=== PATIENT | male | born 1960 | race Caucasian/White ===

== ENCOUNTER 2017-09-13 04:15 | Emergency (ER) | payer MEDICARE ==
[2017-09-13 05:47] LABS: ADD MAN DIFF? NO
[2017-09-13 05:54] LABS: BASO % 1 % (0-3); EOS # 0.1 x10^3/uL (0.0-0.7); EOS % 2 % (0-3); HEMATOCRIT 44.1 % (39.0-53.0); HEMOGLOBIN 14.9 g/dL (13.0-17.5); LYMPH # 1.4 x10^3/uL (1.0-4.8); LYMPH % 22 % (24-48); MEAN CORPUSCULAR HEMOGLOBIN 29 pg (25-35); MEAN CORPUSCULAR HGB CONC 34 g/dL (31-37); MEAN CORPUSCULAR VOLUME 84 fL (79-100); MONO # 0.9 x10^3/uL (0.0-1.1); MONO % 14 % (0-9); NEUT # 3.9 x10^3uL (1.8-7.7); NEUT % 61 % (31-73); PLATELET COUNT 181 x10^3/uL (140-400); RED BLOOD COUNT 5.23 x10^6/uL (4.30-5.70); RED CELL DISTRIBUTION WIDTH 13.8 % (11.5-14.5); WHITE BLOOD COUNT 6.4 x10^3/uL (4.0-11.0)
[2017-09-13 06:01] LABS: ANION GAP 9 (6-14); BLOOD UREA NITROGEN 30 mg/dL (8-26); BUN/CREATININE RATIO 23 (6-20); CALCIUM 8.8 mg/dL (8.5-10.1); CARBON DIOXIDE 27 mmol/L (21-32); CHLORIDE 101 mmol/L (98-107); CREATININE 1.3 mg/dL (0.7-1.3); GFR 56.7; GLUCOSE 165 mg/dL (70-99); SODIUM 137 mmol/L (136-145)
[2017-09-13 06:07] LABS: ALBUMIN 3.7 g/dL (3.4-5.0); ALK PHOS 106 U/L (46-116); ALT (SGPT) 51 U/L (16-63); AST (SGOT) 25 U/L (15-37); LIPASE 94 U/L (73-393); TOTAL BILIRUBIN 0.3 mg/dL (0.2-1.0); TOTAL PROTEIN 7.3 g/dL (6.4-8.2)
[2017-09-13] MEDS: IV NORMAL SALINE 1000ML BAG 1,000 ML IV ×2 (06:20)
[2017-09-13] MEDS: fentaNYL PF VIAL 100 MCG/2 ML VIAL IV ×2 (06:29)
[2017-09-13] MEDS: ONDANSETRON PF 4 MG/2 ML VIAL. IV ×2 (06:30)
[2017-09-13 06:37] LABS: TROPONINI < 0.017 ng/mL (0.000-0.055)
[2017-09-13 07:29] LABS: BILIRUBIN,URINE NEGATIVE (NEG); CLARITY,URINE CLEAR; COLOR,URINE YELLOW; GLUCOSE,URINE 100 mg/dL (NEG); NITRITE,URINE NEGATIVE (NEG); PH,URINE 5.5; PROTEIN,URINE NEGATIVE (NEG-TRACE); UROBILINOGEN,URINE 0.2 mg/dL (0.2 mg/dL)
[2017-09-13 07:54] LABS: HYALINE CASTS, URINE MODERATE /HPF; RBC,URINE 0 /HPF (0-2); SQUAMOUS EPITHELIAL CELL,UR FEW /LPF; WBC,URINE OCC /HPF (0-4)
[2017-09-13 07:55] LABS: BACTERIA,URINE FEW /HPF (0-FEW)
== END 2017-09-13 08:15 | disposition home or self-care (01) ==
LOC: ER 04:15
DX: R10.11 Right upper quadrant pain (principal); J44.9 Chronic obstructive pulmonary disease, unspecified; I10 Essential (primary) hypertension; F12.10 Cannabis abuse, uncomplicated; F15.10 Other stimulant abuse, uncomplicated; R00.0 Tachycardia, unspecified
CPT/HCPCS: 36415; 76705; 80053; 81001; 83690; 84484; 85025; 93005; 96361; 96374; 96375; 99285-25; J2405; J3010; J7030

== ENCOUNTER 2018-12-09 18:35 | Inpatient (IN) | payer MEDICARE ==
[~2018-12-09] VITALS: Ht 177.8 cm; Wt 73.3 kg
[~2018-12-09 18:35] MED LIST: AZIT250T6 PO; PRED50TA PO
[2018-12-09] MEDS ORDERED: IPRATRPIUM/ALBUTEROL 0.5/2.5MG 3 ML NEBU. NEB ONE ×2 (19:15→20:00)
[2018-12-09] MEDS ORDERED: IV NORMAL SALINE 1000ML BAG 1,000 ML IV ONE (19:15)
[2018-12-09] MEDS ORDERED: DEXAMETHASONE SOD PHOS 20 MG/5 ML VIAL. IV ONE (19:15)
--- NOTE | 2018-12-09 19:16 | PHYS DOC ---
Past Medical History Past Medical History: Asthma, COPD, Hypertension Past Surgical History: Cervical Fusion, Other Additional Past Surgical Histo: back sx Smoking: Cigarettes Additional Information: 1 PPD Alcohol Use: Occasionally Drug Use: Cocaine, Marijuana, Methamphetamine Social History Narrative: LAST USED METH A FEW DAYS AGO Adult General Chief Complaint Chief Complaint: SHORTNESS OF BREATH HPI HPI Patient is a 58 year old male with past medical history of COPD and asthma who presents with shortness of breath. Patient states that one week ago he had increased cough that was not productive of any sputum. Within the past 2 days, his cough increased with increasing shortness of breath and dyspnea. Patient has had multiple bouts of pneumonia in the past and feels that this is similar to those symptoms. Today he has taken 4 doses of his metered-dose inhaler which he believed was albuterol but is actually fluticasone. He has not had any relief of his symptoms. He has multiple sick contacts within his family however he denies any fevers chills or increase in purulent sputum. Patient denies any chest pain, shortness of breath, palpitations, hemoptysis, or increased swelling of her extremities. He does occasionally use cocaine and methamphetamine, the last time he used was 2 days ago. Review of Systems Review of Systems Constitutional: Denies fever or chills [] Eyes: Denies vision changes or diplopia [] HENT: Reports nasal congestion and runny nose. Denies sore throat [] Respiratory: Reports nonproductive cough, dyspnea and shortness of breath [] Cardiovascular: Denies chest pain or palpitations[] GI: Denies abdominal pain, nausea, vomiting, or diarrhea [] : Denies dysuria or hematuria [] Musculoskeletal: Denies calf tenderness or lower extremity swelling[] Integument: Denies rash or skin lesions [] Neurologic: Denies headache, focal weakness or sensory changes [] Complete review of systems found to be within normal limits, except as documented in this note. Current Medications Current Medications Current Medications Medications (Trade) Dose Ordered Sig/Maci Start Time Stop Time Status Last Admin Dose Admin Albuterol/ Ipratropium (Duoneb) 3 ml 1X ONCE 12/09/18 20:00 12/09/18 20:01 DC 12/09/18 20:05 3 ML Dexamethasone Sodium Phosphate (Decadron) 10 mg 1X ONCE 12/09/18 19:15 12/09/18 19:16 DC 12/09/18 20:28 10 MG Sodium Chloride 1,000 ml @ 1,000 mls/hr 1X ONCE 12/09/18 19:15 12/09/18 20:14 DC 12/09/18 20:27 1,000 MLS/HR Allergies Allergies Allergies Coded Allergies Type Severity Reaction Last Updated Verified No Known Drug Allergies 09/19/15 No Physical Exam Physical Exam Constitutional: Well developed, well nourished, in mild respiratory distress but non-toxic appearance. [] HENT: Normocephalic, atraumatic, bilateral external ears normal, oropharynx moist, no oral exudates, nose normal. [] Eyes: EOMI, conjunctiva normal, no discharge. [] Neck: Normal range of motion, no tenderness, supple, no lymphadenopathy. [] Cardiovascular:Heart rate tachycardic with regular rhythm, no murmur [] Lungs & Thorax: Diffuse inspiratory and expiratory wheezing bilaterally[] Abdomen: Protuberant, soft and nontender. [] Skin: Warm, dry, no erythema, no rash. [] Back: Midline surgical scar and cervical and thoracic spine without tenderness. [] Extremities: Radial pulses +2 bilaterally, cap refill less than 2 seconds. [] Neurologic: Alert and oriented, normal motor function, normal sensory function, no focal deficits noted. [] Psychologic: Affect normal, judgement normal, mood normal. [] Current Patient Data Vital Signs Vital Signs Date Time Temp Pulse Resp B/P (MAP) Pulse Ox O2 Delivery O2 Flow Rate FiO2 12/09/18 20:05 96 Room Air 12/09/18 20:00 110 24 178/100 (126) 12/09/18 18:38 99.0 99.0 Lab Values Laboratory Tests Test 12/09/18 19:00 White Blood Count 8.8 x10^3/uL (4.0-11.0) Red Blood Count 5.07 x10^6/uL (4.30-5.70) Hemoglobin 14.0 g/dL (13.0-17.5) Hematocrit 41.9 % (39.0-53.0) Mean Corpuscular Volume 83 fL (79-100) Mean Corpuscular Hemoglobin 28 pg (25-35) Mean Corpuscular Hemoglobin Concent 33 g/dL (31-37) Red Cell Distribution Width 13.9 % (11.5-14.5) Platelet Count 194 x10^3/uL (140-400) Neutrophils (%) (Auto) 68 % (31-73) Lymphocytes (%) (Auto) 21 % (24-48) L Monocytes (%) (Auto) 8 % (0-9) Eosinophils (%) (Auto) 3 % (0-3) Basophils (%) (Auto) 1 % (0-3) Neutrophils # (Auto) 5.9 x10^3uL (1.8-7.7) Lymphocytes # (Auto) 1.8 x10^3/uL (1.0-4.8) Monocytes # (Auto) 0.7 x10^3/uL (0.0-1.1) Eosinophils # (Auto) 0.3 x10^3/uL (0.0-0.7) Basophils # (Auto) 0.1 x10^3/uL (0.0-0.2) Sodium Level 139 mmol/L (136-145) Potassium Level 3.7 mmol/L (3.5-5.1) Chloride Level 104 mmol/L (98-107) Carbon Dioxide Level 26 mmol/L (21-32) Anion Gap 9 (6-14) Blood Urea Nitrogen 21 mg/dL (8-26) Creatinine 1.2 mg/dL (0.7-1.3) Estimated GFR (Cockcroft-Gault) 62.0 BUN/Creatinine Ratio 18 (6-20) Glucose Level 141 mg/dL (70-99) H Lactic Acid Level 1.1 mmol/L (0.4-2.0) Calcium Level 8.5 mg/dL (8.5-10.1) Total Bilirubin 1.1 mg/dL (0.2-1.0) H Aspartate Amino Transferase (AST) 25 U/L (15-37) Alanine Aminotransferase (ALT) 42 U/L (16-63) Alkaline Phosphatase 124 U/L (46-116) H Creatine Kinase 93 U/L (39-308) Creatine Kinase MB (Mass) 1.9 ng/mL (0.0-3.6) Creatine Kinase MB Relative Index 2.0 % (0-4) Troponin I Quantitative 0.039 ng/mL (0.000-0.055) KK-Pax-X-Type Natriuretic Peptide 2255 pg/mL (0-124) H Total Protein 7.2 g/dL (6.4-8.2) Albumin 3.5 g/dL (3.4-5.0) Albumin/Globulin Ratio 0.9 (1.0-1.7) L Laboratory Tests 12/09/18 19:00 Laboratory Tests 12/09/18 19:00 EKG EKG @1859: Sinus tachycardia with rate of 112. Normal axis. No Q waves. T wave inversion in leads I and aVL. No ST segment elevation or depression.[] Radiology/Procedures Radiology/Procedures Chest PA Lateral: Surgical hardware for hardware from previous spinal fusion noted. Airway midline. Cardiac silhouette is not enlarged. No pleural effusion noted. No pneumothorax. No overt evidence of consolidation. Initial interpretation provided by ED physician. [] Course & Med Decision Making Course & Med Decision Making Pertinent Labs and Imaging studies reviewed. (See chart for details) Patient is a 58-year-old male with past medical history notable for COPD and asthma who experienced increasing cough about one week ago. His symptoms acutely worsen 2 days ago with increasing nonproductive cough and shortness of breath. He has been using his inhaler at home thinking that this was albuterol however it was inhaled Corticosteroids. Patient was afebrile and maintaining saturations greater than 95% on room air on arrival however he was tachycardic. Patient given two breathing treatment with mild improvement of his respiratory effort effort. Dexamethasone and IV fluids given in the ED. chest x-ray showed no e vidence of acute cardiopulmonary process. Patient afebrile maintaining saturations on room air. Clinical presentation likely consistent with COPD exacerbation. CBC unremarkable. CMP notable for blood glucose of 141. Lactic acid negative. CK-MB negative. Troponin 0.039. ProBNP 2255. Discussed with jaiden way the benefit of being admitted given the fact that his respiratory effort did not initially improve with first breathing treatment. Patient is agreeable and will be admitted to Dr. Schwab for further evaluation and treatment. Patient requiring admission for further evaluation and treatment. Discussed with Dr. Schwab who is in agreement with admission. Discussed findings and plan with patient, who acknowledge understanding and agreement. [] Dragon Disclaimer Dragon Disclaimer This electronic medical record was generated, in whole or in part, using a voice recognition dictation system. Departure Departure Impression: Primary Impression: COPD exacerbation Disposition: ADMITTED INPATIENT Admitting Physician: Jacob Mcgarry Condition: STABLE Referrals: JACOB MCGARRY MD (PCP) DANIELLE TRONCOSO DO December 09, 2018 19:16
[2018-12-09 19:22] LABS: BASO # 0.1 x10^3/uL (0.0-0.2); BASO % 1 % (0-3); EOS # 0.3 x10^3/uL (0.0-0.7); EOS % 3 % (0-3); HEMATOCRIT 41.9 % (39.0-53.0); LYMPH # 1.8 x10^3/uL (1.0-4.8); LYMPH % 21 % (24-48); MEAN CORPUSCULAR HEMOGLOBIN 28 pg (25-35); MEAN CORPUSCULAR HGB CONC 33 g/dL (31-37); MEAN CORPUSCULAR VOLUME 83 fL (79-100); MONO # 0.7 x10^3/uL (0.0-1.1); MONO % 8 % (0-9); NEUT # 5.9 x10^3uL (1.8-7.7); NEUT % 68 % (31-73); PLATELET COUNT 194 x10^3/uL (140-400); RED BLOOD COUNT 5.07 x10^6/uL (4.30-5.70); RED CELL DISTRIBUTION WIDTH 13.9 % (11.5-14.5); WHITE BLOOD COUNT 8.8 x10^3/uL (4.0-11.0)
[2018-12-09 19:31] LABS: CALCIUM 8.5 mg/dL (8.5-10.1); CREATININE 1.2 mg/dL (0.7-1.3); POTASSIUM 3.7 mmol/L (3.5-5.1)
[2018-12-09 19:37] LABS: ALBUMIN 3.5 g/dL (3.4-5.0); ALBUMIN/GLOBULIN RATIO 0.9 (1.0-1.7); TOTAL BILIRUBIN 1.1 mg/dL (0.2-1.0); TOTAL PROTEIN 7.2 g/dL (6.4-8.2)
[2018-12-09] MEDS ORDERED: ONDANSETRON PF 4 MG/2 ML VIAL. IV PRN (20:30)
[2018-12-09] MEDS ORDERED: ACETAMINOPHEN 325 MG TABLET. PO PRN (20:30)
[2018-12-09 21:15] VITALS: BP 158/81
[2018-12-09 23:00] VITALS: BP 145/87
[2018-12-10] VITALS (7 sets, daily range): BP systolic 141–167; BP diastolic 71–90
[2018-12-10] MEDS ORDERED: LISI10TA2 PO (03:27)
--- NOTE | 2018-12-10 05:36 | RAD ---
PA and lateral chest. HISTORY: Short of breath, COPD, asthma, cough, wheezing PA and lateral views were taken of the chest. Patient had previous spinal fusion. Lungs are free of infiltrates. There is no pleural effusion. Heart is normal in size. IMPRESSION: 1. No acute infiltrates. Electronically signed by: Joseph Espino MD (12/10/2018 5:33 AM) [facility]
[2018-12-10] MEDS: IPRATRPIUM/ALBUTEROL 0.5/2.5MG 3 ML NEBU. NEB SCH ×4 (07:41→19:48)
--- NOTE | 2018-12-10 08:24 | PDOC ---
Provider Note Provider Note [id number] ae of copd acute bronchitis elevated troponine and bnp see orders ?cardiology consult RENETTA CONNELL MD December 10, 2018 08:24
--- NOTE | 2018-12-10 08:37 | CONS ---
DATE OF CONSULTATION: 12/10/2018 I was asked to see this 58-year-old gentleman for acute exacerbation of COPD. HISTORY OF PRESENT ILLNESS: He does have history of [id number] smoking, continues to smoke about 1 pack per day. He does also smoke marijuana and methamphetamine. He has had increased shortness of breath, cough with sputum production and wheezing for the past few days. He denies runny nose or nasal congestion or gastroesophageal reflux symptoms. He denies chest pain. PAST MEDICAL HISTORY: COPD, cervical fusion, hypertension. ALLERGIES: No known drug allergies. MEDICATIONS: Currently he is on DuoNeb. SOCIAL HISTORY: History of [id number] smoking. Continues to smoke about 1 pack per day. He smokes marijuana and amphetamine occasionally. FAMILY HISTORY: There is no history of lung disease. REVIEW OF SYSTEMS: As mentioned as above, other systems otherwise negative. PHYSICAL EXAMINATION: GENERAL: This is a well-developed gentleman. VITAL SIGNS: His O2 saturation is 96% on room air, heart rate 88, blood pressure 147/83, and temperature 98. HEENT: Normocephalic, atraumatic. Pupils are equal, round, reactive to light. Throat is clear. Nose is clear. NECK: There is no JVD, lymphadenopathy or thyromegaly. CARDIOVASCULAR: Regular rate and rhythm. PMI is nondisplaced. CHEST: Inspection is normal. LUNGS: There is end-expiratory wheezing. Percussion is within normal limit. ABDOMEN: Soft. Bowel sounds are good. There is no mass. EXTREMITIES: There is no edema. LYMPHATICS: There is no lymphadenopathy. NEUROLOGIC: Alert and oriented. SKIN: Warm. LABORATORY DATA: I reviewed the following lab data: Chest x-ray does not show infiltrate. WBC is 8.8, hemoglobin 14, and platelets 194. Sodium is 139, potassium 3.7, chloride 104, CO2 of 26, glucose 141, BUN 21, creatinine 1.2, total bilirubin 1.1, AST 25, ALT 42, and alkaline phosphatase 124. BNP is 2255. Troponin is 0.025. IMPRESSION: 1. Dyspnea secondary to acute exacerbation of chronic obstructive pulmonary disease and acute bronchitis versus others 2. Acute exacerbation of chronic obstructive pulmonary disease. 3. Acute bronchitis. 4. Elevated troponin and BNP. 5. Tobacco habituation. 6. Drug abuse. 7. Hypertension. PLAN AND RECOMMENDATIONS: 1. Titrate FiO2 to keep O2 saturation 92%. 2. Continue bronchodilator. 3. I will add Solu-Medrol 40 mg IV every 12 hours. 4. Start Rocephin. 5. I will order echocardiogram. He may need Cardiology consultation for elevated troponin and BNP. 6. I had a long discussion with him regarding smoking cessation. I have advised him to stop smoking cigarettes and avoid using marijuana or methamphetamine. 7. The findings and recommendations were discussed with the patient. He understood and agreed to proceed with the plan. Thank you very much for allowing me to participate in care of this very nice gentleman. RENETTA CONNELL M.D. DR: Leela JOB#: [id number] / [id number] CAROLYNN
[2018-12-10] MEDS ORDERED: methylPREDNISolone SOD SUCC PF 40 MG/ML VIAL. IV SCH (09:00)
[2018-12-10] MEDS: LISINOPRIL 10 MG TABLET PO SCH (10:14)
--- NOTE | 2018-12-10 11:04 | EKG ---
[facility] [address] [place] [address] Test Date: 2018-12-09 Test Time: 18:59:29 Pat Name: DARON LANGSTON Department: Room: [facility] Gender: M Hunter Skin Diver: : 1960 Requested By: DANIELLE TRONCOSO Order Number: [id number] Reading MD: Graeme Joshi Measurements Intervals [place] Rate: 112 P: 52 IA: 108 QRS: 45 QRSD: 96 T: 116 QT: 336 QTc: 460 Interpretive Statements SINUS TACHYCARDIA LEFT ATRIAL ABNORMALITY Electronically Signed On 12-29-2018 12:43:39 CDT by Graeme Joshi
--- NOTE | 2018-12-10 11:50 | HP ---
ADMIT DATE: 12/09/2018 CHIEF COMPLAINT AND HISTORY OF PRESENT ILLNESS: This is a 58-year-old white male who presented to the Emergency Room with a week or so of shortness of breath. He states that in retrospect, he believes it started after shoveling some rocks with his son when they were doing a project at his son's house. He does have a long history even as a child of asthma, but it feels like he had outgrown it. He denies any shortness of breath on a day-to-day basis throughout the year and is able to do normally whatever he wants and in addition, he has had no problems whatsoever even in hot, humid weather over the last several years of doing what he wants. He has had a cough with this. He has heard wheezing. He has got extremely short of breath. He does have a metered dose inhaler of albuterol, which he takes occasionally, but usually has been using it more recently. There are several people in his family who have been sick recently, with the respiratory thing in addition, complicating it all. He was found to be in exacerbation of chronic obstructive pulmonary disease and shortness of breath and admitted to the hospital for the same. PAST MEDICAL HISTORY: The patient's past medical history is remarkable for asthma, COPD and hypertension. PAST SURGICAL HISTORY: Remarkable for cervical fusion as well as a back surgery. MEDICATIONS: Medications were brought with the patient, only include lisinopril. ALLERGIES: He has no known drug allergies. SOCIAL HISTORY: He is a nqr-azdl-zhb-day smoker. He uses marijuana and admits to the Emergency Room that he uses methamphetamine and cocaine on occasion. FAMILY HISTORY: Noncontributory. REVIEW OF SYSTEMS: That as mentioned above as well as a hard cough sometimes and spasms, where he feels like he is not going to be able to start breathing again. PHYSICAL EXAMINATION: GENERAL: He is well-developed, well-nourished white male, in no acute distress at the time of my examination. VITAL SIGNS: Stable. He is afebrile. HEAD, EYES, EARS, NOSE AND THROAT: Unremarkable. NECK: Supple, without adenopathy or thyromegaly. CHEST: Reveals some mild expiratory wheezes. HEART: Regular rate and rhythm, without S3, S4 or murmur. ABDOMEN: Soft, nontender, without hepatosplenomegaly or masses. EXTREMITIES: Without cyanosis, clubbing or edema. NEUROLOGIC: He is intact. LABORATORY DATA: Initial laboratory includes a troponin that is somewhat elevated and a BNP of 2255, with an essentially normal chest x-ray and we will ask Cardiology for opinion on the same. Blood sugar is 141 on admission. IMPRESSION: 1. Exacerbation of chronic obstructive pulmonary disease. 2. History of drug abuse, as outlined above. 3. Elevated troponin and BNP, without clinical evidence of cardiovascular disease on exam. PLAN: Pulmonary and Cardiology consultation. Continue present antibiotics, pulmonary toilet, etc. JACOB MANTILLA MD DR: SHYAM/jericho JOB#: [id number] / [id number]
[2018-12-10] MEDS: cefTRIAXone IV Push 1 GM VIAL. IVP SCH (12:45)
[2018-12-10] MEDS: AZITHROMYCIN 500 MG in IV NORMAL SALINE 250ML 250 ML IV SCH (12:46)
[2018-12-10] MEDS: methylPREDNISolone SOD SUCC PF 40 MG/ML VIAL. IV SCH ×2 (14:43→22:18)
[2018-12-10 18:14] LABS: INFLUENZA A PATIENT NEGATIVE (NEGATIVE); INFLUENZA B PATIENT NEGATIVE (NEGATIVE)
[2018-12-11] MEDS: oxyCODONE IR 5 MG TABLET PO PRN ×3 (00:22→23:36)
[2018-12-11 03:00] VITALS: BP 153/93
[2018-12-11] MEDS: methylPREDNISolone SOD SUCC PF 40 MG/ML VIAL. IV SCH ×3 (06:14→21:10)
[2018-12-11 07:00] VITALS: BP 176/109
[2018-12-11] MEDS: IPRATRPIUM/ALBUTEROL 0.5/2.5MG 3 ML NEBU. NEB SCH ×3 (07:01→19:45)
[2018-12-11] MEDS: LISINOPRIL 10 MG TABLET PO SCH (08:02)
[2018-12-11] MEDS: cefTRIAXone IV Push 1 GM VIAL. IVP SCH (08:03)
[2018-12-11] MEDS: AZITHROMYCIN 500 MG in IV NORMAL SALINE 250ML 250 ML IV SCH (08:04)
--- NOTE | 2018-12-11 08:54 | PDOC ---
PULMONARY PROGRESS NOTES Subjective PT LESS SOA NO CHEST PAIN Vitals Vital Signs Date Time Temp Pulse Resp B/P (MAP) Pulse Ox O2 Delivery O2 Flow Rate FiO2 12/11/18 08:02 114 176/109 12/11/18 08:01 97 Room Air 12/11/18 07:00 97.5 18 97.5 ROS: No Nausea, No Chest Pain, No Abdominal Pain, No Increase Cough General: Alert Lungs: Crackles Cardiovascular: S1, S2 Abdomen: Soft Neuro Exam: Alert Extremities: No Edema Skin: Warm Labs Laboratory Tests Test 12/09/18 19:00 12/10/18 00:05 12/10/18 03:30 12/10/18 15:50 White Blood Count 8.8 x10^3/uL (4.0-11.0) Red Blood Count 5.07 x10^6/uL (4.30-5.70) Hemoglobin 14.0 g/dL (13.0-17.5) Hematocrit 41.9 % (39.0-53.0) Mean Corpuscular Volume 83 fL (79-100) Mean Corpuscular Hemoglobin 28 pg (25-35) Mean Corpuscular Hemoglobin Concent 33 g/dL (31-37) Red Cell Distribution Width 13.9 % (11.5-14.5) Platelet Count 194 x10^3/uL (140-400) Neutrophils (%) (Auto) 68 % (31-73) Lymphocytes (%) (Auto) 21 % (24-48) Monocytes (%) (Auto) 8 % (0-9) Eosinophils (%) (Auto) 3 % (0-3) Basophils (%) (Auto) 1 % (0-3) Neutrophils # (Auto) 5.9 x10^3uL (1.8-7.7) Lymphocytes # (Auto) 1.8 x10^3/uL (1.0-4.8) Monocytes # (Auto) 0.7 x10^3/uL (0.0-1.1) Eosinophils # (Auto) 0.3 x10^3/uL (0.0-0.7) Basophils # (Auto) 0.1 x10^3/uL (0.0-0.2) Sodium Level 139 mmol/L (136-145) Potassium Level 3.7 mmol/L (3.5-5.1) Chloride Level 104 mmol/L (98-107) Carbon Dioxide Level 26 mmol/L (21-32) Anion Gap 9 (6-14) Blood Urea Nitrogen 21 mg/dL (8-26) Creatinine 1.2 mg/dL (0.7-1.3) Estimated GFR (Cockcroft-Gault) 62.0 BUN/Creatinine Ratio 18 (6-20) Glucose Level 141 mg/dL (70-99) Lactic Acid Level 1.1 mmol/L (0.4-2.0) Calcium Level 8.5 mg/dL (8.5-10.1) Total Bilirubin 1.1 mg/dL (0.2-1.0) Aspartate Amino Transf (AST/SGOT) 25 U/L (15-37) Alanine Aminotransferase (ALT/SGPT) 42 U/L (16-63) Alkaline Phosphatase 124 U/L (46-116) Creatine Kinase 93 U/L (39-308) Creatine Kinase MB (Mass) 1.9 ng/mL (0.0-3.6) Creatine Kinase MB Relative Index 2.0 % (0-4) Troponin I Quantitative 0.039 ng/mL (0.000-0.055) 0.030 ng/mL (0.000-0.055) 0.025 ng/mL (0.000-0.055) SQ-Ppl-T-Type Natriuretic Peptide 2255 pg/mL (0-124) Total Protein 7.2 g/dL (6.4-8.2) Albumin 3.5 g/dL (3.4-5.0) Albumin/Globulin Ratio 0.9 (1.0-1.7) Influenza Type A Antigen Negative (NEGATIVE) Influenza Type B Antigen Negative (NEGATIVE) Laboratory Tests Test 12/10/18 15:50 Influenza Type A Antigen Negative (NEGATIVE) Influenza Type B Antigen Negative (NEGATIVE) Medications Active Scripts Medications Dose Route/Sig Max Daily Dose Days Date Category Lisinopril 10 Mg Tablet 1 Tab PO DAILY 12/10/18 Reported Impression . IMPRESSION: 1. Dyspnea secondary to acute exacerbation of chronic obstructive pulmonary disease and acute bronchitis versus others 2. Acute exacerbation of chronic obstructive pulmonary disease. 3. Acute bronchitis. 4. Elevated troponin and BNP. 5. Tobacco habituation. 6. Drug abuse. 7. Hypertension. NO LUNG DISORDERS SH SMOKES Plan . CONTINUE SUPPORT 1. Titrate FiO2 to keep O2 saturation 92%. 2. Continue bronchodilator. 3. I will add Solu-Medrol 40 mg IV every 12 hours. 4. Start Rocephin. 5. I will order echocardiogram. He may need Cardiology consultation for elevated troponin and BNP. 6. I had a long discussion with him regarding smoking cessation. I have advised him to stop smoking cigarettes and avoid using marijuana or methamphetamine. DWAYNE RUBIO MD December 11, 2018 08:54
[2018-12-11] MEDS ORDERED: AZITHRMYCN 500MG IVPB FOR OMNI 250 ML IV SCH (09:00)
[2018-12-11 11:00] VITALS: BP 152/86
--- NOTE | 2018-12-11 11:00 | PDOC2 ---
CARDIAC CONSULT DATE OF CONSULT Date of Consult DATE: 12/11/18 TIME: 10:55 REASON FOR CONSULT Reason for Consult: Elevated troponin and BNP REFERRING PHYSICIAN Referring Physician: Dr. Mcgarry HISTORY OF PRESENT ILLNESS HISTORY OF PRESENT ILLNESS This is a 58 yo male who presented secondary to shortness of breath. Patient reports helping his son work on his house a couple of days ago. Was cutting stone and inhaling lots of dust. Since then, has had progressive shortness of breath and non-productive cough. Has felt wheezy. No chest pain, palpitations, dizziness, diaphoresis, or LE edema. Troponin level and NT Pro BNP noted to be mildly elevated upon arrival, which prompted this consult. Of note, does report intermittent cocaine, methamphetamine, and marijuana. Last used the day prior to arrival. PAST MEDICAL HISTORY Cardiovascular: HTN Pulmonary: Asthma, COPD, Pneumonia GI: GERD Hepatobiliary: Hep A/B/C (C) Psych: Depression Musculoskeletal: Osteoarthritis PAST SURGICAL HISTORY Past Surgical History: Total knee replacement (left ), Other (neck fusion, back surgery) FAMILY HISTORY Family History: Diabetes SOCIAL HISTORY Smoke: <1 pack per day ALCOHOL: none Drugs: Cocaine, Marijuana, Crystal meth Lives: with Family CURRENT MEDICATIONS CURRENT MEDICATIONS Current Medications Medications (Trade) Dose Ordered Sig/Maci Route PRN Reason Start Time Stop Time Status Last Admin Dose Admin Methylprednisolone Sodium Succinate (SOLU-Medrol 40MG VIAL) 40 mg Q8HRS IV 12/10/18 14:00 12/11/18 06:14 Azithromycin 500 mg/Sodium Chloride 250 ml @ 250 mls/hr DAILY IV 12/10/18 12:00 12/11/18 08:04 Oxycodone HCl (Roxicodone) 10 mg PRN Q6HRS PRN PO PAIN 12/10/18 23:45 12/11/18 08:01 ALLERGIES ALLERGIES: Coded Allergies: No Known Drug Allergies (Unverified , 09/19/15) ROS Review of System 14 point ROS conducted with pertinent positives noted above in HPI. PHYSICAL EXAM General: Alert, Oriented X3, Cooperative, No acute distress HEENT: Atraumatic, Mucous membr. moist/pink Lungs: Other (wheezes throughout ) Heart: Regular rate, Normal S1, Normal S2, Other (2/6 systolic murmur ) Abdomen: Soft, No tenderness Extremities: No edema, Normal pulses Skin: No significant lesion Neuro: Normal speech, Sensation intact Psych/Mental Status: Mental status NL, Mood NL MUSCULOSKELETAL: No deformity VITALS VITALS Vital Signs Date Time Temp Pulse Resp B/P (MAP) Pulse Ox O2 Delivery O2 Flow Rate FiO2 12/11/18 09:05 97 Room Air 12/11/18 08:02 114 176/109 12/11/18 07:00 97.5 18 97.5 LABS Lab: Laboratory Tests Test 12/10/18 15:50 Influenza Type A Antigen Negative (NEGATIVE) Influenza Type B Antigen Negative (NEGATIVE) ASSESSMENT/PLAN ASSESSMENT/PLAN 1. Dyspnea in the setting of AE COPD and mild acute on chronic systolic HF 2. Mild troponin elevation; peak 0.039. Type II demand ischemia 3. Accelerated Hypertension; remains elevated 4. Cardiomyopathy; Echo revealed LVEF 20-25%, which is a new finding 5. Substance abuse; admits to cocaine and methamphetamine use the day prior to arrival 6. Tobaccoism Recommendations Check UDS Lipid panel Add ASA Continue ACEi; increase for better BP control No BB with recent cocaine use Discussed ad encouraged cessation of recreation drugs and tobacco Will need further ischemic workup at some point LEROY CROOKS APRN December 11, 2018 11:00
--- NOTE | 2018-12-11 11:29 | PN ---
DATE: 12/11/2018 LOCATION: Room 408. SUBJECTIVE: The patient is awake, alert, feels like he is breathing better. He is still here and some wheezing, but not like he was. Shortness of breath has definitely improved. OBJECTIVE: VITAL SIGNS: Stable. He is afebrile. He remains a little bit tachycardic in the 100-110 range. CHEST: Reveals only rare expiratory wheezes this morning. HEART: Tachycardic. ABDOMEN: Benign. He is complaining more about neck pain than his breathing this morning. IMPRESSION: 1. Exacerbation of chronic obstructive pulmonary disease, improving with current treatment. 2. Elevated troponin and BNP. PLAN: We are awaiting Cardiology evaluation. Pulmonary help is appreciated. Continue same with eye towards probable discharge as soon as tomorrow with the improvement we have seen today. JACOB MANTILLA MD DR: SHYAM/jericho JOB#: [id number] / [id number]
--- NOTE | 2018-12-11 12:06 | CARD ---
MR#: [id number] Date of Study: 12/11/2018 Ordering Physician: RENETTA CONNELL, Referring Physician: JACOB MANTILLA Tech: Trina Riley DENYS APPROVED REPORT EXAM: Two-dimensional and M-mode echocardiogram with Doppler and color Doppler. Other Information Quality : AverageHR: 115bpm Rhythm : TachycardiaTechnically limited study due to COPD INDICATION Shortness of breath 2D DIMENSIONS RVDd3.5 (2.9-3.5cm)Left Atrium(2D)3.5 (1.6-4.0cm) IVSd1.3 (0.7-1.1cm)Aortic Root(2D)3.1 (2.0-3.7cm) LVDd5.3 (3.9-5.9cm)LVOT Diameter1.9 (1.8-2.4cm) PWd1.3 (0.7-1.1cm)LVDs4.8 (2.5-4.0cm) FS (%) 8.9 %SV26.2 ml LVEF(%)20.0 (>50%) M-Mode DIMENSIONS Left Atrium(MM)3.54 (2.5-4.0cm)Aortic Root3.09 (2.2-3.7cm) Aortic Valve AoV Peak Marc.176.5cm/sAoV VTI25.3cm AO Peak GR.12.5mmHgLVOT Peak Marc.98.1cm/s AO Mean GR.7mmHgAVA (VMAX)1.58cm2 EDUARDO (VTI)1.69qa0EX P 1/2 [id number] Mitral Valve MV E Jczsfugi751.1cm/sMV DECEL [id number] MV A Uazztldu41.7cm/sE/A Ratio1.5 Pulmonary Valve PV Peak Mojeszak132.7cm/s Tricuspid Valve TR P. Ezqdkgaz730qi/sRAP QBEPTOIO5abXs TR Peak Gr.35xoXmCBPZ67pmKa Pulmonary Vein S1 Auoumxiq47.1cm/sD2 Qlbqrsek01.5cm/s LEFT VENTRICLE The left ventricle is normal size. There is mild concentric left ventricular hypertrophy. The left ve ntricular systolic function is severely impaired. The Ejection Fraction is 20-25%. There is global hy pokinesis of the left ventricle. LV trabeculations noted. RIGHT VENTRICLE The right ventricle is normal size. There is normal right ventricular wall thickness. Systolic functi on is mildly reduced. ATRIA The left atrium size is normal. The right atrium size is normal. The interatrial septum is intact wit h no evidence for an atrial septal defect or patent foramen ovale as noted on 2-D or Doppler imaging. AORTIC VALVE The aortic valve is calcified but opens well. The aortic valve is trileaflet. Doppler and Color Flow revealed moderate aortic regurgitation. There is no significant aortic valvular stenosis. There is no aortic valvular vegetation. MITRAL VALVE The mitral valve is normal in structure and function. There is no evidence of mitral valve prolapse. There is no mitral valve stenosis. Doppler and Color-flow revealed mild to moderate mitral regurgitat ion. TRICUSPID VALVE The tricuspid valve is normal in structure and function. Doppler and Color Flow revealed mild to mode rate tricuspid regurgitation. There is moderate pulmonary hypertension. The PA pressure was estimated at 55 mmHg. There is no tricuspid valve prolapse or vegetation. There is no tricuspid valve stenosis . PULMONIC VALVE The pulmonic valve is not well visualized. GREAT VESSELS The aortic root is normal in size. The ascending aorta is normal in size. The IVC is dilated and mary apses >50% with inspiration. PERICARDIAL EFFUSION There is no evidence of significant pericardial effusion. Critical Notification Critical Value: No <Conclusion> The left ventricular systolic function is severely impaired. The Ejection Fraction is 20-25%. Moderate aortic regurgitation. Mild to moderate mitral regurgitation. Mild to moderate tricuspid regurgitation. There is moderate pulmonary hypertension. The PA pressure was estimated at 55 mmHg. There is no evidence of significant pericardial effusion. Signed by : Graeme Joshi, Electronically Approved : 12/11/2018 12:05:45
--- NOTE | 2018-12-11 12:30 | NUR ---
SW following for discharge planning. Discussed with RN, pt admitted to using meth, marijuana and cocaine occasionally, RN denies need for PAT team. RN advised no SW needs at this time, pt is from home. SW will continue to follow for any discharge planning needs.
[2018-12-11 13:16] LABS: HEMOGLOBIN A1C 7.2 % (4.8-5.6)
[2018-12-11 15:00] VITALS: BP 147/88
[2018-12-11] MEDS ORDERED: LISINOPRIL 10 MG TABLET PO ONE (17:30)
[2018-12-11 17:42] LABS: BARBITURATES NEG (NEG); BENZODIAZEPINES POS (NEG); CANNABINOIDS NEG (NEG); COCAINE POS (NEG); METHADONE NEG (NEG); OPIATES NEG (NEG); PHENCYCLIDINE NEG (NEG)
[2018-12-11 17:44] LABS: AMPHETAMINE/METHAMPHETAMINE NEG (NEG)
[2018-12-11 19:00] VITALS: BP 118/88
[2018-12-11] MEDS: LACTOBACILLUS RHAMNOSUS GG 1 CAPSULE. PO SCH (21:10)
[2018-12-11 23:00] VITALS: BP 160/80
[2018-12-12 03:00] VITALS: BP 140/84
[2018-12-12] MEDS: methylPREDNISolone SOD SUCC PF 40 MG/ML VIAL. IV SCH ×2 (05:34→13:10)
[2018-12-12 06:31] LABS: CHOLESTEROL/HDL RATIO 4.6
[2018-12-12 07:00] VITALS: BP 153/94
[2018-12-12] MEDS: IPRATRPIUM/ALBUTEROL 0.5/2.5MG 3 ML NEBU. NEB SCH ×3 (07:16→17:03)
[2018-12-12] MEDS: LACTOBACILLUS RHAMNOSUS GG 1 CAPSULE. PO SCH (07:48)
[2018-12-12] MEDS: oxyCODONE IR 5 MG TABLET PO PRN (07:49)
[2018-12-12] MEDS: cefTRIAXone IV Push 1 GM VIAL. IVP SCH (07:50)
[2018-12-12] MEDS: AZITHROMYCIN 500 MG in IV NORMAL SALINE 250ML 250 ML IV SCH (07:51)
[2018-12-12] MEDS ORDERED: ASPIRIN ENTERIC COATED 81 MG TABLET.DR. PO SCH (08:00)
[2018-12-12] MEDS ORDERED: LISINOPRIL 20 MG TABLET PO SCH (09:00)
--- NOTE | 2018-12-12 09:07 | PDOC ---
PULMONARY PROGRESS NOTES Subjective PT LESS SOA NO CHEST PAIN Vitals Vital Signs Date Time Temp Pulse Resp B/P (MAP) Pulse Ox O2 Delivery O2 Flow Rate FiO2 12/12/18 08:52 96 Room Air 12/12/18 07:49 107 153/94 12/12/18 07:00 98.0 17 98.0 ROS: No Nausea, No Chest Pain, No Abdominal Pain, No Increase Cough General: Alert Lungs: Crackles Cardiovascular: S1, S2 Abdomen: Soft Neuro Exam: Alert Extremities: No Edema Skin: Warm Labs Laboratory Tests Test 12/10/18 15:50 12/11/18 17:20 12/12/18 05:35 Influenza Type A Antigen Negative (NEGATIVE) Influenza Type B Antigen Negative (NEGATIVE) Urine Opiates Screen Neg (NEG) Urine Methadone Screen Neg (NEG) Urine Barbiturates Neg (NEG) Urine Phencyclidine Screen Neg (NEG) Urine Amphetamine/Methamphetamine Neg (NEG) Urine Benzodiazepines Screen Pos (NEG) Urine Cocaine Screen Pos (NEG) Urine Cannabinoids Screen Neg (NEG) Urine Ethyl Alcohol Neg (NEG) Triglycerides Level 123 mg/dL (0-150) Cholesterol Level 143 mg/dL (0-200) LDL Cholesterol, Calculated 87 mg/dL (0-100) VLDL Cholesterol, Calculated 25 mg/dL (0-40) Non-HDL Cholesterol Calculated 112 mg/dL (0-129) HDL Cholesterol 31 mg/dL (40-60) Cholesterol/HDL Ratio 4.6 Laboratory Tests Test 12/11/18 17:20 12/12/18 05:35 Urine Opiates Screen Neg (NEG) Urine Methadone Screen Neg (NEG) Urine Barbiturates Neg (NEG) Urine Phencyclidine Screen Neg (NEG) Urine Amphetamine/Methamphetamine Neg (NEG) Urine Benzodiazepines Screen Pos (NEG) Urine Cocaine Screen Pos (NEG) Urine Cannabinoids Screen Neg (NEG) Urine Ethyl Alcohol Neg (NEG) Triglycerides Level 123 mg/dL (0-150) Cholesterol Level 143 mg/dL (0-200) LDL Cholesterol, Calculated 87 mg/dL (0-100) VLDL Cholesterol, Calculated 25 mg/dL (0-40) Non-HDL Cholesterol Calculated 112 mg/dL (0-129) HDL Cholesterol 31 mg/dL (40-60) Cholesterol/HDL Ratio 4.6 Medications Active Scripts Medications Dose Route/Sig Max Daily Dose Days Date Category Lisinopril 10 Mg Tablet 1 Tab PO DAILY 12/10/18 Reported Impression . IMPRESSION: 1. Dyspnea secondary to acute exacerbation of chronic obstructive pulmonary disease and acute bronchitis versus others 2. Acute exacerbation of chronic obstructive pulmonary disease. 3. Acute bronchitis. 4. Elevated troponin and BNP. 5. Tobacco habituation. 6. Drug abuse. 7. Hypertension. FH NO LUNG DISORDERS SH SMOKES Plan . 02 N/C 6 MIN WALK NEBS STEROIDS ANTI BX D/C SMOKING DWAYNE RUBIO MD December 12, 2018 09:07
--- NOTE | 2018-12-12 10:25 | NUR ---
SW following for discharge planning. Discussed with RN, pt waiting on cardiology consult. RN advised no SW needs. SW will continue to follow.
[2018-12-12 11:00] VITALS: BP 147/99
[2018-12-12 15:00] VITALS: BP 152/91
--- NOTE | 2018-12-12 16:27 | PDOC ---
CARDIO Progress Notes Date and Time Date of Service 12/12/2018 Time of Evaluation 1600 Subjective Subjective: No Chest Pain, No shortness of breath, No Palpitations Vitals Vitals Vital Signs Date Time Temp Pulse Resp B/P (MAP) Pulse Ox O2 Delivery O2 Flow Rate FiO2 12/12/18 11:27 Room Air 12/12/18 11:00 97.7 88 17 147/99 (115) 96 97.7 Weight Weight [ ] Input and Output Intake and Output Intake and Output 12/12/18 07:00 Intake Total 1050 ml Output Total 400 ml Balance 650 ml Intake Oral 1050 ml Output Urine Total 400 ml # Voids 1 Laboratory Labs Laboratory Tests Test 12/11/18 17:20 12/12/18 05:35 Urine Opiates Screen Neg (NEG) Urine Methadone Screen Neg (NEG) Urine Barbiturates Neg (NEG) Urine Phencyclidine Screen Neg (NEG) Urine Amphetamine/Methamphetamine Neg (NEG) Urine Benzodiazepines Screen Pos (NEG) Urine Cocaine Screen Pos (NEG) Urine Cannabinoids Screen Neg (NEG) Urine Ethyl Alcohol Neg (NEG) Triglycerides Level 123 mg/dL (0-150) Cholesterol Level 143 mg/dL (0-200) LDL Cholesterol, Calculated 87 mg/dL (0-100) VLDL Cholesterol, Calculated 25 mg/dL (0-40) Non-HDL Cholesterol Calculated 112 mg/dL (0-129) HDL Cholesterol 31 mg/dL (40-60) Cholesterol/HDL Ratio 4.6 Physical Exam HEENT: Neck Supple W Full Motion Chest: Symmetric LUNGS: Clear to Auscultation Heart: S1S2, RRR (regular no tele) Abdomen: Soft N/T Extremities: No Edema, No Calf Tenderness Neurology: alert, oriented, follow commands Assessment Assessment 1. AECOPD: better 2. 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 Substance abuse: admits to cocaine and meth 4. Mild troponin elevation; peaked 0.039. Type II demand ischemia 5. Accelerated Hypertension; remains elevated 6. Tobaccoism 7. DM2: A1C 7.2 new, coverage per PCP Recommendations 1. Start on coreg. I did discussed to him the interaction of meth and cocaine with BB 2. Lisinopril, statin, ASA 3. Stress test next week. CHF education, 2 L FR daily wt, HBPM 4. Follow up in office in 2-3 weeks 5. Will consider entresto as an outpt pending MPI result. 6. Smoking cessation CHF education Lasix PO prn 7. Lifevest discussed and will consider as outpt pending adherence. MARISOL SEVILLA TYPEWRITER ALIGNER December 12, 2018 16:27
[2018-12-12 16:44] VITALS: BP 152/91
[2018-12-12] MEDS ORDERED: CARVEDILOL 3.125 MG TABLET. PO SCH (17:00)
[2018-12-12] MEDS ORDERED: CARVEDILOL 6.25 MG TABLET. PO SCH (17:00)
[2018-12-12] MEDS ORDERED: FUROSEMIDE 40 MG TABLET. PO PRN (17:15)
[2018-12-12] MEDS ORDERED: ATOR10TA60 PO (17:41)
[2018-12-12] MEDS ORDERED: CARV3.12 PO (17:41)
[2018-12-12] MEDS ORDERED: FURO-68 PO (17:42)
[2018-12-12] MEDS ORDERED: AZIT500T PO (17:43)
[2018-12-12] MEDS ORDERED: METF500T9 PO (17:43)
[2018-12-12] MEDS ORDERED: CEFD300C PO (17:43)
[2018-12-12] MEDS ORDERED: LISI-334 PO (17:44)
[2018-12-12] MEDS ORDERED: ASPI-630 PO (17:44)
--- NOTE | 2018-12-12 17:50 | NUR ---
Discharge Note: DARON LANGSTON [address] Discharge instructions and discharge home medications reviewed with Patient and a copy given. All questions have been answered and understanding verbalized. The following instructions and handouts were given: information about discharge appointments, medications, etc. Omnicef, Zithromax, and Metformin called into [facility] at [facility]. Other prescriptions given to patient. Notified patient to follow up with cardiology for outpatient stress test. Notified patient of new fluid restriction, avoid excessive sodium. Discontinued lines and drains: IV line in left AC removed, catheter tip intact. Patient discharged to home with self care with family member, patient ambulated to discharge vehicle.
[2018-12-12] MEDS ORDERED: metFORMIN 500 MG TABLET PO SCH (18:00)
--- NOTE | 2018-12-12 20:38 | DS ---
DATE OF DISCHARGE: 12/12/2018 PRIMARY DIAGNOSES: 1. Exacerbation of chronic obstructive pulmonary disease with shortness of breath. 2. New diagnosis of diabetes. 3. Hypertension. 4. History of drug abuse. 5. New finding of cardiomyopathy with ejection fraction of 20%-25% with moderate pulmonary hypertension with pulmonary artery pressure estimated at 55 mmHg, moderate mitral regurgitation and moderate tricuspid regurgitation, and moderate aortic regurgitation. CHIEF COMPLAINT AND HISTORY OF PRESENT ILLNESS: This 58-year-old white male admitted through the Emergency Room with shortness of breath and exacerbation of chronic obstructive pulmonary disease on the day of admission with diffuse bronchospasm. SUMMARY OF STAY: The patient was admitted, treated with pulmonary toilet, steroids, IV antibiotics throughout the stay with improvement in his symptomatology. He did have an elevated troponin, which was felt to be demand ischemia by Cardiology and no AK, also an elevated BNP and echocardiogram showing cardiomyopathy as discussed above. Medications were adjusted for this as well as for his hypertension throughout the stay. Did have a history of drug abuse and it is felt by apron worker may be a toxic cardiomyopathy, but are planning an outpatient ischemic workup after the time of discharge. He was started on metformin at the time of discharge for his diabetes and we will be following up in the office in the next week for further treatment there. DISPOSITION: The patient is discharged to home, ADA diet, activity as tolerated, office in 1 week. He will also have an appointment to see Cardiology. DISCHARGE MEDICATIONS: Will include Zithromax 250 daily for the next two days. He will be on Lipitor 10 mg daily. He will be on Omnicef 300 mg b.i.d. for the next 7 days. He will be on metformin 500 b.i.d. with meals, furosemide 40 mg daily for shortness of breath, carvedilol 3.125 mg b.i.d., lisinopril has been increased to 20 mg daily. He has also been started on aspirin 81 mg daily at the time of discharge. JACOB MANTILLA MD DR: SHYAM/jericho JOB#: [id number] / [id number]
[2018-12-12] MEDS ORDERED: CEFDINIR 300 MG CAPSULE PO SCH (21:00)
[2018-12-12] MEDS ORDERED: ATORVASTATIN CALCIUM 10 MG TABLET. PO SCH (21:00)
--- NOTE | 2018-12-13 04:00 | PN ---
DATE: 12/12/2018 LOCATION: Room 408. SUBJECTIVE: The patient is awake, alert, feeling much better, getting ready to eat breakfast as I am seeing him. Denies any shortness of breath or chest pain. OBJECTIVE: VITAL SIGNS: Stable. He is afebrile. Blood pressures continue to run a little bit high and Cardiology is planning on adding medications to his regimen for the same. CHEST: Clear. HEART: Regular. ABDOMEN: Benign. LABORATORY DATA: Hemoglobin A1c has come back at 7.2 leading to the diagnosis of diabetes, which is a new diagnosis. IMPRESSION: 1. Cardiomyopathy, likely toxic per feelings of Cardiology with ejection fraction in the 20-25% range. There is also mild to moderate mitral regurg, mild to moderate tricuspid regurgitation and moderate pulmonary hypertension with a PA pressure estimated at 55. 2. Exacerbation of asthma with shortness of breath, improving. 3. Congestive heart failure. 4. Elevated troponin, felt to be stress mediated. 5. History of drug abuse. 6. New onset diabetes. PLAN: Await final thoughts, Cardiology, Pulmonary with likely discharge tomorrow. With normal renal and liver function, we will plan on adding metformin to his regimen for the diabetes. JACOB MANTILLA MD DR: SHYAM/jericho JOB#: [id number] / [id number]
[2018-12-13] MEDS ORDERED: AZITHROMYCIN 250 MG TABLET. PO SCH (09:00)
== END 2018-12-12 17:50 | disposition home or self-care (01) | DRG 190 ==
LOC: ER 18:35 → 4 NORTH 20:15
PROVIDERS: ADMIT Family Medicine; ATTEND Family Medicine
DX: J44.1 Chronic obstructive pulmonary disease with (acute) exacerbation (principal); I50.23 Acute on chronic systolic (congestive) heart failure; J45.901 Unspecified asthma with (acute) exacerbation; I42.9 Cardiomyopathy, unspecified; I24.8 Other forms of acute ischemic heart disease; R65.10 Systemic inflammatory response syndrome (SIRS) of non-infectious origin without acute organ dysfunction; J20.9 Acute bronchitis, unspecified; I10 Essential (primary) hypertension; I11.0 Hypertensive heart disease with heart failure; F12.90 Cannabis use, unspecified, uncomplicated; F14.10 Cocaine abuse, uncomplicated; F15.90 Other stimulant use, unspecified, uncomplicated; F17.210 Nicotine dependence, cigarettes, uncomplicated; J44.0 Chronic obstructive pulmonary disease with (acute) lower respiratory infection; E11.9 Type 2 diabetes mellitus without complications; I08.1 Rheumatic disorders of both mitral and tricuspid valves; I27.20 Pulmonary hypertension, unspecified; F32.9 Major depressive disorder, single episode, unspecified; M19.90 Unspecified osteoarthritis, unspecified site; K21.9 Gastro-esophageal reflux disease without esophagitis; Z96.652 Presence of left artificial knee joint; Z83.3 Family history of diabetes mellitus; Z87.01 Personal history of pneumonia (recurrent); Z98.1 Arthrodesis status
CPT/HCPCS: 36415; 71046; 80053; 80061; 80307; 82553; 83036; 83605; 83880; 84484; 85025; 87804; 93005; 93306; 94640; 94760; 96361; 96374; J0456; J0696; J1100; J2920; J7030; J7050; J7620; 99285-25

== ENCOUNTER 2020-02-23 19:28 | Emergency (ER) | payer MEDICARE ==
[~2020-02-23] VITALS: Ht 177.8 cm; Wt 100.0 kg
[~2020-02-23 19:28] MED LIST changes: +ASPI-630 PO; +ATOR10TA60 PO; +AZIT500T PO; +CARV3.12 PO; +CEFD300C PO; +FURO-68 PO; +LISI-334 PO; +LISI10TA2 PO; +METF-658 PO
--- NOTE | 2020-02-23 20:29 | PHYS DOC ---
Past Medical History Past Medical History: Asthma, COPD, Hypertension, Pneumonia Past Surgical History: Cervical Fusion, Other Additional Past Surgical Histo: back sx Smoking Status: Current Every Day Smoker Additional Information: 1 PPD Alcohol Use: Occasionally Drug Use: Cocaine, Marijuana, Methamphetamine Social History Narrative: LAST USED 3 DAYS AGO General Adult EDM: Chief Complaint: FACE PROBLEM HPI: HPI: 59-year-old male presents with report of right facial swelling that became worse today. Patient reports concern for possible dental abscess. Reports history of poor dentition. Patient does report he is a 1 pack-a-day smoker and also uses methamphetamines. Reports last use approximately 3 days ago. Denies any fever or chills. Denies trauma. Patient does report chronic cough. Denies known exposure to COVID-19. Review of Systems: Review of Systems: Constitutional: Denies fever or chills Eyes: Denies redness or eye pain HENT: Denies nasal congestion or sore throat; reports toothache and facial swelling Respiratory: Reports chronic cough; denies shortness of breath Cardiovascular: Denies chest pain or palpitations GI: Denies abdominal pain, nausea, or vomiting : Denies dysuria or hematuria Musculoskeletal: Denies back pain or joint pain Integument: Denies rash or skin lesions Neurologic: Denies headache, focal weakness or sensory changes Complete systems were reviewed and found to be within normal limits, except as documented in this note. Allergies: Allergies: Allergies Coded Allergies Type Severity Reaction Last Updated Verified No Known Drug Allergies 09/19/15 No Physical Exam: PE: Constitutional: Well developed, well nourished, no acute distress, non-toxic appearance HENT: Normocephalic, atraumatic, oropharynx moist, poor dentition throughout, gingival swelling to right maxillary premolar areas at sites of severe dental decay/caries, no drainable abscess noted, other areas with significant dental decay as well., right facial swelling with mild erythema Eyes: PERRL, EOMI, conjunctiva normal, no discharge Neck: Normal range of motion, supple Lungs & Thorax: No respiratory distress, equal chest rise and fall Abdomen: Soft, no tenderness Skin: Warm, dry, no erythema, no rash Extremities: No tenderness, ROM intact, no edema Neurologic: Alert and oriented X 3, no focal deficits noted Psychologic: Affect normal, judgment normal Current Patient Data: Vital Signs: Vital Signs Date Time Temp Pulse Resp B/P (MAP) Pulse Ox O2 Delivery O2 Flow Rate FiO2 02/23/20 20:11 98.4 109 20 218/105 (142) 97 Room Air 98.4 EKG: EKG: @2019 Sinus tachycardia at 107bpm, NO ST elevation, QRS 96ms, QT/QTc 326/441ms, occasional PVC Radiology/Procedures: Radiology/Procedures: [] Course & Med Decision Making: Course & Med Decision Making Patient presents with HPI and physical exam consistent for dental abscess secondary to poor dentition/severe dental decay. No drainable abscess appreciated. Empiric antibiotic initiated. Symptomatic treatment provided with oral steroid. Patient stable for discharge with outpatient follow-up with PCP/dentist. Dental referral form provided. Discussed findings and plan with patient, who acknowledges understanding and agreement. Dragon Disclaimer: Dragmonet Disclaimer: This electronic medical record was generated, in whole or in part, using a voice recognition dictation system. Departure Departure Impression: Primary Impression: Dental abscess Additional Impression: Dentalgia Disposition: HOME, SELF-CARE Condition: STABLE Referrals: JACOB MANTILLA MD (PCP) Patient Instructions: Dental Abscess, Toothache-Brief Scripts Chlorhexidine Gluconate (PERIDEX) 15 Ml Mouthwash 15 ML PO BID for 7 Days, #473 ML 0 Refills Prov: DANIELLE TRONCOSO DO 02/23/20 Prednisone (PREDNISONE) 20 Mg Tablet 2 TAB PO DAILY, #8 TAB Start this prescription tomorrow, Tuesday02/24/20 Prov: DANIELLE TRONCOSO DO 02/23/20 Amoxicillin/Potassium Clav (AUGMENTIN 875-125 TABLET) 1 Each Tablet 1 TAB PO BID, #14 TAB Prov: DANIELLE TRONCOSO DO 02/23/20 Hydrocodone/Apap 5-325 (NORCO 5-325 TABLET) 1 Each Tablet 0.5-1 TAB PO PRN Q6HRS PRN for PAIN, #10 TAB 0 Refills Prov: DANIELLE TRONCOSO DO 02/23/20 Justicifation of Admission Dx: Justifications for Admission: Justification of Admission Dx: N/A DANIELLE TRONCOSO DO Feb 23, 2020 20:29
[2020-02-23] MEDS ORDERED: PRED20TA PO (21:20)
[2020-02-23] MEDS ORDERED: CHLO15MO2 PO (21:20)
[2020-02-23] MEDS ORDERED: HYDR-3164 PO (21:20)
[2020-02-23] MEDS ORDERED: AMOX1TAB61 PO (21:20)
[2020-02-23 21:26] VITALS: BP 206/111
[2020-02-23] MEDS ORDERED: DEXAMETHASONE 4 MG TABLET PO ONE (22:00)
[2020-02-23] MEDS ORDERED: HYDROcodone/APAP 5/325MG 1 TAB TABLET PO ONE (22:00)
[2020-02-23] MEDS ORDERED: AMOXICILLIN/K CLAV 875/125MG TABLET. PO ONE (22:00)
--- NOTE | 2020-02-26 13:14 | EKG ---
[facility] [address] [place] [address] Test Date: 2020-02-23 Test Time: 20:19:29 Pat Name: DARON LANGSTON Department: Room: Gender: M Quarantine Officer: : 1960 Requested By: DANIELLE TRONCOSO Order Number: [id number] Reading MD: Measurements Intervals Vance Rate: 107 P: 43 WA: 120 QRS: 10 QRSD: 96 T: 80 QT: 326 QTc: 441 Interpretive Statements SINUS TACHYCARDIA VENTRICULAR PREMATURE COMPLEX(ES) R-S TRANSITION ZONE IN V LEADS DISPLACED TO THE RIGHT QRS(T) CONTOUR ABNORMALITY CONSISTENT WITH INFERIOR INFARCT PROBABLY OLD ST & T ABNORMALITY, CONSIDER HIGH LATERAL ISCHEMIA OR LEFT VENTRICULAR STRAIN ABNORMAL ECG RI6.02 No previous ECG available for comparison
== END 2020-02-23 21:40 | disposition home or self-care (01) ==
LOC: ER 19:28
DX: K04.7 Periapical abscess without sinus (principal); K08.89 Other specified disorders of teeth and supporting structures; R60.0 Localized edema; R05 Cough; J44.9 Chronic obstructive pulmonary disease, unspecified; I10 Essential (primary) hypertension; F17.200 Nicotine dependence, unspecified, uncomplicated; F12.90 Cannabis use, unspecified, uncomplicated; F14.90 Cocaine use, unspecified, uncomplicated; F19.90 Other psychoactive substance use, unspecified, uncomplicated; Z98.890 Other specified postprocedural states
CPT/HCPCS: 93005; 99284

== ENCOUNTER 2020-03-27 13:11 | Emergency (ER) | payer MEDICARE ==
[~2020-03-27] VITALS: Ht 177.8 cm; Wt 90.9 kg
[~2020-03-27 13:11] MED LIST changes: +AMOX1TAB61 PO; +CHLO15MO2 PO; +HYDR-3164 PO; +PRED20TA PO
[2020-03-27 13:25] VITALS: BP 118/61
[2020-03-27] MEDS ORDERED: LIDOCAINE 1%/EPI 1:100,000 20 ML VIAL. SQ ONE (13:45)
--- NOTE | 2020-03-27 14:05 | RAD ---
TIBIA FIBULA LEFT 03/27/2020 1:31 PM INDICATION: Laceration to the left lower leg from a bit grinder COMPARISON: None available. TECHNIQUE: 2 views of the left tibia and fibula are provided. FINDINGS/ IMPRESSION: Soft tissue laceration is identified along the medial aspect of the mid calf. No underlying fracture or dislocation. No periosteal reaction. No subcutaneous gas or osseous erosion. No radiopaque foreign density. Electronically signed by: Jessi Lyon MD (03/27/2020 2:02 PM) JUANA
[2020-03-27] MEDS ORDERED: NEOMY/BACITR/POLYMYXIN OINT PACKET. TP ONE (14:15)
[2020-03-27] MEDS ORDERED: CEPH500C PO (14:16)
--- NOTE | 2020-03-27 14:16 | PHYS DOC ---
Past Medical History Past Medical History: Asthma, COPD, Hypertension, Pneumonia Past Surgical History: Cervical Fusion, Other Additional Past Surgical Histo: back sx Smoking Status: Current Every Day Smoker Alcohol Use: Occasionally Drug Use: Cocaine, Marijuana, Methamphetamine General Adult EDM: Chief Complaint: LACERATION/AVULSION HPI: HPI: Patient is a 59 year old male who presents to the emergency department with complaints of a laceration to his left anterior leg. Patient states he was using a track grinder operator when he lost control of it and dropped it and cut his left lower leg. Patient denies any pain with weightbearing. He reports his last tetanus shot was less than 5 years ago. The patient denies any numbness, tingling, or weakness of the affected extremity. He denies any decreased sensation. The patient currently rates his pain a 2 out of 10 on the pain scale, he denies any radiation, alleviating, or exacerbating factors. Review of Systems: Review of Systems: Constitutional: Denies fever or chills. [] Musculoskeletal: Denies joint pain. [] Integument: See HPI Neurologic: Denies focal weakness or sensory changes. [] Psychiatric: Denies depression or anxiety. [] Heart Score: Risk Factors: Risk Factors: DM, Current or recent (<one month) smoker, HTN, HLP, family history of CAD, obesity. Risk Scores: Score 0 - 3: 2.5% MACE over next 6 weeks - Discharge Home Score 4 - 6: 20.3% MACE over next 6 weeks - Admit for Clinical Observation Score 7 - 10: 72.7% MACE over next 6 weeks - Early Invasive Strategies Current Medications: Current Medications Medications (Trade) Dose Ordered Sig/[facility] Start Time Stop Time Status Last Admin Dose Admin Lidocaine/ Epinephrine (LIDOCAINE 1%-EPI 1:100,000 Multi-Dose) 20 ml 1X ONCE 03/27/20 13:45 03/27/20 13:46 DC 03/27/20 13:44 20 ML Allergies: Allergies: Allergies Coded Allergies Type Severity Reaction Last Updated Verified No Known Drug Allergies 09/19/15 No Physical Exam: PE: Constitutional: Well developed, well nourished, no acute distress, non-toxic appearance. [] HENT: Normocephalic, atraumatic, bilateral external ears normal, nose normal. [] Eyes: PERRLA, EOMI, conjunctiva normal, no discharge. [] Neck: Normal range of motion, no stridor. [] Cardiovascular:Heart rate regular rhythm Lungs & Thorax: Respirations even and unlabored, no retractions, no respiratory distress Abdomen: soft, no tenderness Skin: Warm, dry, no erythema, no rash; 3.5 cm vertical laceration noted to the anterior lower left leg with bleeding controlled by pressure dressing in place. No visible foreign body. [] Extremities: Lower left extremity: No bony tenderness, PMS intact , no cyanosis, ROM intact, no edema. [] Neurologic: Alert and oriented X 3, no focal deficits noted. [] Psychologic: Affect normal, judgement normal, mood normal. [] Current Patient Data: Vital Signs: Vital Signs Date Time Temp Pulse Resp B/P (MAP) Pulse Ox O2 Delivery O2 Flow Rate FiO2 03/27/20 13:25 97.9 79 13 118/61 (80) 97 Room Air 97.9 EKG: EKG: [] Radiology/Procedures: Radiology/Procedures: Laceration Repair by me: Anesthesia: 1% lidocaine locally with epi Location: Anterior lower left extremity Tendon/Joint/Nerves: No injury Foreign body: None detected after copious irrigation and exploration wi th NS and chlorhexidine Technique: 5 Simple Interrupted Sutures with 4-0 Prolene Complexity: No subcutaneous sutures/mucosal repair/edge excision Post Closure Length: 3.5 cm Patient's bleeding was easily controlled in the department and there is no indication of anemia. No evidence of compartment syndrome, neurologic injury, vascular injury, open joint, tendon laceration, or foreign body. Patient is appropriate for outpatient follow up. [] Course & Med Decision Making: Course & Med Decision Making Pertinent Labs and Imaging studies reviewed. (See chart for details) [] Dragon Disclaimer: Dragon Disclaimer: This electronic medical record was generated, in whole or in part, using a voice recognition dictation system. Departure Departure Impression: Primary Impression: Laceration of left lower leg without complication Qualified Codes: S81.812A - Laceration without foreign body, left lower leg, initial encounter Disposition: HOME, SELF-CARE Condition: STABLE Referrals: JACOB MANTILLA MD (PCP) Patient Instructions: Laceration Care, Adult, [id number] Additional Instructions: Fill the prescription and take as directed. Keep the area clean and dry. You may take Tylenol or ibuprofen as needed for pain. Keep the dressing that was placed today on for 24 hours then change the dressing twice a day and apply antibiotic ointment to the area. Follow-up with your primary care doctor, or return to the emergency room in 10-14 days to have the sutures removed, sooner if you develop signs of infection including: redness, warmth, drainage, or a fever. Scripts Cephalexin (CEPHALEXIN) 500 Mg Capsule 1 CAP PO QID for 7 Days, #28 CAP 0 Refills Prov: KARTHIK LAZCANO TARIFF PUBLISHING AGENT 03/27/20 Justicifation of Admission Dx: Justifications for Admission: Justification of Admission Dx: N/A KARTHIK LAZCANO TARIFF PUBLISHING AGENT Mar 27, 2020 14:16
== END 2020-03-27 14:21 | disposition home or self-care (01) ==
LOC: ER 13:11
DX: S51.812A Laceration without foreign body of left forearm, initial encounter (principal); J44.9 Chronic obstructive pulmonary disease, unspecified; I10 Essential (primary) hypertension; F17.200 Nicotine dependence, unspecified, uncomplicated; F12.90 Cannabis use, unspecified, uncomplicated; F14.90 Cocaine use, unspecified, uncomplicated; F19.90 Other psychoactive substance use, unspecified, uncomplicated; Z98.890 Other specified postprocedural states; W26.8XXA Contact with other sharp object(s), not elsewhere classified, initial encounter; Y93.89 Activity, other specified; Y92.89 Other specified places as the place of occurrence of the external cause; Y99.8 Other external cause status
CPT/HCPCS: 12002; 73590; 99283; J3490

== ENCOUNTER 2020-04-06 16:33 | Emergency (ER) | payer MEDICARE ==
[~2020-04-06] VITALS: Ht 177.8 cm; Wt 90.7 kg
[~2020-04-06 16:33] MED LIST changes: +CEPH500C PO
[2020-04-06 17:28] VITALS: BP 153/88
[2020-04-06] MEDS ORDERED: SULF1TAB24 PO (18:21)
--- NOTE | 2020-04-06 18:21 | PHYS DOC ---
Past Medical History Past Medical History: Asthma, COPD, Hypertension, Pneumonia Past Surgical History: Cervical Fusion, Other Additional Past Surgical Histo: back sx Smoking Status: Current Every Day Smoker Alcohol Use: Rarely Drug Use: Cocaine, Marijuana, Methamphetamine General Adult EDM: Chief Complaint: LOWER EXT PAIN HPI: HPI: Patient is a 60 year old male who presents for suture removal from the left tabor as well as evaluation of the area for possible infection. He reports the area has been draining yellow purulent material. He states the sutures were placed in 10 days ago. Review of Systems: Review of Systems: Constitutional: Denies fever or chills. [] Musculoskeletal: Denies back pain or joint pain. [] Integument: Visit for suture removal from the left heel Neurologic: Denies headache, focal weakness or sensory changes. [] Psychiatric: Denies depression or anxiety. [] Heart Score: Risk Factors: Risk Factors: DM, Current or recent (<one month) smoker, HTN, HLP, family history of CAD, obesity. Risk Scores: Score 0 - 3: 2.5% MACE over next 6 weeks - Discharge Home Score 4 - 6: 20.3% MACE over next 6 weeks - Admit for Clinical Observation Score 7 - 10: 72.7% MACE over next 6 weeks - Early Invasive Strategies Allergies: Allergies: Allergies Coded Allergies Type Severity Reaction Last Updated Verified No Known Drug Allergies 09/19/15 No Physical Exam: PE: Constitutional: Well developed, well nourished, no acute distress, non-toxic appearance. [] Skin: Warm, dry, left mid tabor with a dehisced laceration site, approximately 6 interrupted stitches are noted. There is surrounding cellulitis to this laceration site. Stitches were removed by me. Back: No tenderness, no CVA tenderness. [] Extremities: No tenderness, no cyanosis, no clubbing, ROM intact, no edema. [] Neurologic: Alert and oriented X 3, normal motor function, normal sensory function, no focal deficits noted. [] Psychologic: Affect normal, judgement normal, mood normal. [] Current Patient Data: Vital Signs: Vital Signs Date Time Temp Pulse Resp B/P (MAP) Pulse Ox O2 Delivery O2 Flow Rate FiO2 04/06/20 17:28 96.8 14 153/88 (109) 96 Room Air 96.8 EKG: EKG: [] Radiology/Procedures: Radiology/Procedures: [] Course & Med Decision Making: Course & Med Decision Making Pertinent Labs and Imaging studies reviewed. (See chart for details) This is a 60-year-old male patient presenting to the ED today for suture removal from the left tabor, 6 interrupted sutures were removed from the laceration site, the laceration site is infected. Patient was put on Bactrim. Instructed to keep the area clean and dry. Follow-up with PCP in 1 to 2 weeks. Tetanus up-to-date. Dragon Disclaimer: Dragon Disclaimer: This electronic medical record was generated, in whole or in part, using a voice recognition dictation system. Departure Departure Impression: Primary Impression: Visit for suture removal Additional Impression: Infected laceration Disposition: 01 HOME, SELF-CARE Condition: STABLE Referrals: JACOB MANTILLA MD (PCP) Follow-up in 1 to 2 weeks Patient Instructions: Skin Infections, Suture Removal-Brief Additional Instructions: You have an infected laceration site. Keep the area clean and dry. Take the prescribed antibiotics until completed. Follow-up with your doctor in 1 to 2 weeks Scripts Sulfamethoxazole/Trimethoprim (BACTRIM DS TABLET) 1 Each Tablet 1 TAB PO BID for 10 Days, #20 TAB 0 Refills Prov: ANA RKUGER APRN 04/06/20 Justicifation of Admission Dx: Justifications for Admission: Justification of Admission Dx: N/A ANA KRUGER APRN Apr 06, 2020 18:21
== END 2020-04-06 18:28 | disposition home or self-care (01) ==
LOC: ER 16:33
DX: S81.812D Laceration without foreign body, left lower leg, subsequent encounter (principal); J44.9 Chronic obstructive pulmonary disease, unspecified; I10 Essential (primary) hypertension; F12.90 Cannabis use, unspecified, uncomplicated; F15.90 Other stimulant use, unspecified, uncomplicated; F14.90 Cocaine use, unspecified, uncomplicated; F17.200 Nicotine dependence, unspecified, uncomplicated; Z98.890 Other specified postprocedural states; X58.XXXD Exposure to other specified factors, subsequent encounter
CPT/HCPCS: 99283

== ENCOUNTER 2020-05-30 14:26 | Emergency (ER) | payer MEDICARE ==
[~2020-05-30] VITALS: Ht 180.3 cm; Wt 90.0 kg
[~2020-05-30 14:26] MED LIST changes: +SULF1TAB24 PO
[2020-05-30 14:38] VITALS: BP 144/69
[2020-05-30] MEDS ORDERED: HYDROcodone/APAP 5/325MG 1 TAB TABLET PO ONE (15:15)
--- NOTE | 2020-05-30 15:27 | RAD ---
EXAM: Left knee, 3 views. HISTORY: Stepped in hole. Pain. COMPARISON: None. FINDINGS: 3 views of the left knee are obtained. There is moderate tricompartment marginal spurring. There is linear sclerosis within the medial proximal tibial metaphysis which appears to be postoperative. There are multiple joint loose bodies. There is cortical irregularity along the articular aspects of the lateral greater than medial femoral condyle possibly due to chronic osteochondral lesions. There is a small joint effusion. There is a small distal femoral metadiaphyseal osseous infarct. IMPRESSION: 1. Moderate lateral compartment predominant osteoarthritis of the left knee with multiple joint loose bodies and a small joint effusion. 2. Postoperative changes involving the proximal tibial metaphysis. Electronically signed by: Kamila Elise MD (05/30/2020 3:24 PM) [id number]
[2020-05-30] MEDS ORDERED: NAPR-695 PO (16:08)
--- NOTE | 2020-05-30 16:10 | ED.ADGEN ---
Past Medical History Past Medical History: Asthma, COPD, Hypertension, Pneumonia Past Surgical History: Cervical Fusion, Other Additional Past Surgical Histo: back sx, left knee surgery Smoking Status: Current Every Day Smoker Alcohol Use: Rarely Drug Use: Cocaine, Marijuana, Methamphetamine General Adult EDM: Chief Complaint: KNEE INJURY HPI: HPI: Patient is a 60 year old male who presents the emergency room with complaints of pain behind his left knee after accidentally falling into a hole last night. Patient states he was trying to set up his camper when he accidentally stepped into a hole that he did not see. Patient reports prior surgery to the affected leg. He reports swelling and pain behind his left knee with a tingling sensation shooting down his left lower leg. Patient reports that he has been able to ambulate and uses a cane for ambulation. He denies any joint instability. Review of Systems: Review of Systems: Complete ROS is negative unless otherwise noted in HPI. Current Medications: Current Medications Medications (Trade) Dose Ordered Sig/Maci Start Time Stop Time Status Last Admin Dose Admin Acetaminophen/ Hydrocodone Bitart (Lortab 5/325) 1 tab 1X ONCE 05/30/20 15:15 05/30/20 15:16 DC 05/30/20 15:11 1 TAB Allergies: Allergies: Allergies Coded Allergies Type Severity Reaction Last Updated Verified No Known Drug Allergies 09/19/15 No Physical Exam: PE: See Above Constitutional: Well developed, well nourished, no acute distress, non-toxic appearance. [] HENT: Normocephalic, atraumatic, bilateral external ears normal, nose normal. [] Eyes: PERRLA, EOMI, conjunctiva normal, no discharge. [] Neck: Normal range of motion, no stridor. [] Cardiovascular:Heart rate regular rhythm Lungs & Thorax: Respirations even and unlabored, no retractions, no respiratory distress Skin: Warm, dry, no erythema, no rash. [] Extremities: Left knee: Posterior tenderness to palpation with localized edema, no palpable mass, negative anterior and posterior drawer testing, no erythema, no warmth, no cyanosis, ROM intact Neurologic: Alert and oriented X 3, no focal deficits noted. [] Psychologic: Affect normal, judgement normal, mood normal. [] Current Patient Data: Vital Signs: Vital Signs Date Time Temp Pulse Resp B/P (MAP) Pulse Ox O2 Delivery O2 Flow Rate FiO2 05/30/20 14:38 97.7 76 24 144/69 (94) 99 Room Air 97.7 EKG: EKG: [] Heart Score: Risk Factors: Risk Factors: DM, Current or recent (<one month) smoker, HTN, HLP, family history of CAD, obesity. Risk Scores: Score 0 - 3: 2.5% MACE over next 6 weeks - Discharge Home Score 4 - 6: 20.3% MACE over next 6 weeks - Admit for Clinical Observation Score 7 - 10: 72.7% MACE over next 6 weeks - Early Invasive Strategies Radiology/Procedures: Radiology/Procedures: REASON: L knee pain after falling into hole last night PROCEDURE: KNEE LEFT 3V EXAM: Left knee, 3 views. HISTORY: Stepped in hole. Pain. COMPARISON: None. FINDINGS: 3 views of the left knee are obtained. There is moderate tricompartment marginal spurring. There is linear sclerosis within the medial proximal tibial metaphysis which appears to be postoperative. There are multiple joint loose bodies. There is cortical irregularity along the articular aspects of the lateral greater than medial femoral condyle possibly due to chronic osteochondral lesions. There is a small joint effusion. There is a small distal femoral metadiaphyseal osseous infarct. IMPRESSION: 1. Moderate lateral compartment predominant osteoarthritis of the left knee with multiple joint loose bodies and a small joint effusion. 2. Postoperative changes involving the proximal tibial metaphysis.[] Course & Med Decision Making: Course & Med Decision Making Pertinent Labs and Imaging studies reviewed. (See chart for details) [] Dragon Disclaimer: Dragon Disclaimer: This electronic medical record was generated, in whole or in part, using a voice recognition dictation system. Departure Departure Impression: Primary Impression: Posterior left knee pain Additional Impression: Pain of left knee after injury Disposition: 01 DC HOME SELF CARE/HOMELESS Condition: STABLE Referrals: WILMER RAMIREZ MD Patient Instructions: Knee Pain, [id number] Additional Instructions: Fill prescription(s) and use as directed. Recommend application of ice, elevation, and rest of affected extremity. Wear the knee immobilizer that was placed until follow up appointment. Follow-up with Dr. Ramirez's office next week, return to the ER if your symptoms worsen. Scripts Naproxen (NAPROXEN) 375 Mg Tablet 1 TAB PO BID for 10 Days, #20 TAB 0 Refills Prov: KARTHIK LAZCANO APRN 05/30/20 Splinting Splinting : Location: Left knee Pre-Made Type: knee immobilizer Pre-Proc Neuro Vasc Exam: normal Post-Proc Neuro Vasc Exam: normal, unchanged from pre-exam Problem Qualifiers KARTHIK LAZCANO APRN May 30, 2020 16:10
== END 2020-05-30 16:20 | disposition home or self-care (01) ==
LOC: ER 14:26
DX: M25.562 Pain in left knee (principal); R60.0 Localized edema; R20.2 Paresthesia of skin; J44.9 Chronic obstructive pulmonary disease, unspecified; I10 Essential (primary) hypertension; F17.200 Nicotine dependence, unspecified, uncomplicated; F12.90 Cannabis use, unspecified, uncomplicated; F14.90 Cocaine use, unspecified, uncomplicated; F19.90 Other psychoactive substance use, unspecified, uncomplicated; Z98.890 Other specified postprocedural states
CPT/HCPCS: 29505; 73562; 99283

== ENCOUNTER 2021-01-11 01:19 | Emergency (ER) | payer MEDICARE ==
[~2021-01-11] VITALS: Ht 177.8 cm; Wt 99.0 kg
[~2021-01-11 01:19] MED LIST changes: -LISI-334 PO; +LISI10TA16 PO; -LISI10TA2 PO; +LISI20TA18 PO; +NAPR-695 PO
[2021-01-11] MEDS ORDERED: CEPH500T PO (02:07)
--- NOTE | 2021-01-11 02:07 | ED.ADGEN ---
Past Medical History Past Medical History: Asthma, CAD, COPD, Hypertension, Pneumonia Past Surgical History: Cervical Fusion, Other Additional Past Surgical Histo: back sx, left knee surgery, Smoking Status: Current Every Day Smoker Alcohol Use: Rarely Drug Use: Cocaine, Marijuana, Methamphetamine General Adult EDM: Chief Complaint: SKIN PROBLEM HPI: HPI: Patient is a 60 year old male coming in for concerns of infection to the wound back of his head. Patient states a few days ago he was spraying for ants at the RV and wearing a respirator. Afterwards had a linear abrasion where the mask strap had cut into his skin. Yesterday noticed a small amount of yellowgr eenish oozing from it. Denies any systemic complaints. Denies any immune compromise. Has a history of cervical spine fusion with hardware in place. Review of Systems: Review of Systems: All other systems within normal limits except for as noted in the HPI Allergies: Allergies: Allergies Coded Allergies Type Severity Reaction Last Updated Verified No Known Drug Allergies 09/19/15 No Physical Exam: PE: Constitutional: Well developed, well nourished, no acute distress, non-toxic appearance. [] HENT: Normocephalic, atraumatic, bilateral external ears normal, nose normal. [] Eyes: PERRLA, conjunctiva normal, no discharge. [] Neck: No rigidity, supple, no stridor. No cervical adenopathy, no tenderness palpation over neck [] Cardiovascular: Regular rate and rhythm, brisk cap refill [] Lungs & Thorax: Non labored symmetric respirations, no tachypnea or respiratory distress [] Abdomen: Soft, nondistended. Skin: Warm, dry, scabbed lesion to right occiput and linear shape. Mild induration immediately surrounding it, no fluctuance or drainage. Back: Unremarkable Extremities: No deformities, range of motion grossly intact, no lower extremity edema [] Neurologic: Alert and oriented X 3, no focal deficits noted. [] Psychologic: Affect normal, judgement normal, mood normal. [] Current Patient Data: Vital Signs: Vital Signs Date Time Temp Pulse Resp B/P (MAP) Pulse Ox O2 Delivery O2 Flow Rate FiO2 01/11/21 01:32 98.2 80 20 196/96 (129) 97 Room Air 98.2 EKG: EKG: [] Heart Score: C/O Chest Pain: No Risk Factors: Risk Factors: DM, Current or recent (<one month) smoker, HTN, HLP, family history of CAD, obesity. Risk Scores: Score 0 - 3: 2.5% MACE over next 6 weeks - Discharge Home Score 4 - 6: 20.3% MACE over next 6 weeks - Admit for Clinical Observation Score 7 - 10: 72.7% MACE over next 6 weeks - Early Invasive Strategies Radiology/Procedures: Radiology/Procedures: [] Course & Med Decision Making: Course & Med Decision Making Appears to have a developing cellulitis. No signs that has traveled near the site of his surgeries. Discussed return precautions. Will treat with p.o. antibiotics due to patient's previous hardware implantation near the area Dragon Disclaimer: Barbara Disclaimer: This electronic medical record was generated, in whole or in part, using a voice recognition dictation system. Departure Departure Impression: Primary Impression: Cellulitis Disposition: HOME / SELF CARE / HOMELESS Condition: STABLE Referrals: JAOCB MANTILLA MD (PCP) Patient Instructions: Cellulitis Scripts Cephalexin (CEPHALEXIN) 500 Mg Tablet 1 TAB PO TID for antibiotic for 7 Days, #21 TAB Prov: NAYELY BELL MD 01/11/21 NAYELY BELL MD Jan 11, 2021 02:07
[2021-01-11 02:13] VITALS: BP 157/74
[2021-01-11] MEDS ORDERED: CEPHALEXIN 250 MG CAPSULE. PO ONE (02:30)
[2021-01-11] MEDS ORDERED: NEOMY/BACITR/POLYMYXIN OINT PACKET. TP ONE (02:30)
== END 2021-01-11 02:23 | disposition home or self-care (01) ==
LOC: ER 01:19
DX: L03.211 Cellulitis of face (principal); J44.9 Chronic obstructive pulmonary disease, unspecified; I10 Essential (primary) hypertension; I25.10 Atherosclerotic heart disease of native coronary artery without angina pectoris; F17.200 Nicotine dependence, unspecified, uncomplicated
CPT/HCPCS: 99283